=== PATIENT | male | born 1970 | race Caucasian/White ===

== ENCOUNTER → 2025-02-23 12:07 | Outpatient (BNVA) | payer OTHER, SELFPAY | PROVIDERS: Visit Provider Physician Assistant | DX: S46.811A Strain of other muscles, fascia and tendons at shoulder and upper arm level, right arm, initial encounter (principal); W00.2XXA Other fall from one level to another due to ice and snow, initial encounter | CPT/HCPCS: 99203 ==

== ENCOUNTER → 2025-02-28 11:18 | Outpatient (BNVA) | payer OTHER, SELFPAY | PROVIDERS: Visit Provider Physician Assistant Medical | DX: S46.811A Strain of other muscles, fascia and tendons at shoulder and upper arm level, right arm, initial encounter (principal); W00.2XXA Other fall from one level to another due to ice and snow, initial encounter | CPT/HCPCS: 99213 ==

== ENCOUNTER → 2025-03-21 12:38 | Outpatient (BNVA) | payer OTHER, SELFPAY | PROVIDERS: Visit Provider Physician Assistant Medical | DX: S20.229D Contusion of unspecified back wall of thorax, subsequent encounter (principal); S46.811D Strain of other muscles, fascia and tendons at shoulder and upper arm level, right arm, subsequent encounter; W00.2XXD Other fall from one level to another due to ice and snow, subsequent encounter; M24.811 Other specific joint derangements of right shoulder, not elsewhere classified; M50.13 Cervical disc disorder with radiculopathy, cervicothoracic region | CPT/HCPCS: 72040; 72070; 73030; 99214 ==

== ENCOUNTER → 2025-04-04 09:33 | Outpatient (BNVA) | payer OTHER, SELFPAY | PROVIDERS: Visit Provider Physician Assistant Medical | DX: S20.229D Contusion of unspecified back wall of thorax, subsequent encounter (principal); S46.811D Strain of other muscles, fascia and tendons at shoulder and upper arm level, right arm, subsequent encounter; M24.811 Other specific joint derangements of right shoulder, not elsewhere classified; W00.2XXD Other fall from one level to another due to ice and snow, subsequent encounter; M50.13 Cervical disc disorder with radiculopathy, cervicothoracic region | CPT/HCPCS: 99213 ==

== ENCOUNTER 2025-04-14 10:00 | Outpatient (RCR) | payer OTHER, SELFPAY ==
--- NOTE | 2025-03-17 14:13 | MHC.PT.EP ---
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 His current condition is resulting in decreased tolerance for dressing pullovers, lifting objects of weight, placing objects on a high shelf, and laying on his R side secondary to traumatic fall, decreased R shoulder ROM and strength with mild complication d/t previous shoulder surgery, moderate decreased scapular posture, increased tissue tension R cervical accessory muscles, TTP of his R posterior neck and superior posterior R shoulder, and pain. Pt is deemed an appropriate candidate to receive skilled PT services to address their physical impairments in order to improve their functional ability. Frequency and Duration: The patient will be seen 2 x/ wk x 5 wks. Short Term Goals: Initiate home program. Pt will improve baseline pain to at most< 2-5/10; initial 4-7/10. Senior Living Goals: I with home program. Pt will be able to wash and comb his hair with managed Sx; initial: 6/10 difficulty/ pain. Pt will improve R shoulder IR strength by at least 1/2 MMT grade: initial: 4/5 and painful. Pt will report able to dress pullovers with managed Sx; initial: 5/10. Note: He is currently on light duty. Internet search reveals Applicants are required to be able to lift and carry 50#. Treatment Plan: Modalities to reduce pain, spasms and effusion. Manual therapy to restore motion and function. Therapeutic exercise to improve strength and flexibility. Neuromuscular re-education for posture and balance. Therapeutic activities to return to functional activities of daily living. Electronically signed by: Hernandez Cross, PT. Please sign and return to therapist. Thank you for your referral.
--- NOTE | 2025-04-14 14:23 | MHC.PT.DC ---
[facility] [place] [facility] [place] [facility] [place] Office [address] Cher Worthy [address] [phone] F: [phone] F: [phone] F: [phone] F: [phone] Physical Therapy Discharge Report Diagnosis: R trapezius injury Date of Surgery: Date of Evaluation: 03/15/25 Date of Discharge: 04/14/25 Treatments to Date: 10 Cancellations to Date: No Shows to Date: Discharge Status: Improved Function Independent with HEP Patient Elected to Stop Recommend MD Follow-up Discharge Summary: Francisco has been an active participant in his therapy in the clinic with inconsistent home program compliance who has improved his condition though persists with R shoulder pain and R sided cervical pain. SPADI outcome measure improved by 16 points. He is I with a manageable home program and he is motivated for imaging. Pt reports Cervical TxN has been helping his cervical pain so this was continued today. Electronically signed by: Hernandez Boyer PT. Please sign and return to therapist. Thank you for your referral.
== END 2025-04-14 14:25 | disposition home or self-care (01) ==
LOC: HO.PT 10:00
PROVIDERS: Visit Provider Physician Assistant Medical
DX: S46.811D Strain of other muscles, fascia and tendons at shoulder and upper arm level, right arm, subsequent encounter (principal)
CPT/HCPCS: 97012; 97014; 97110; 97112; 97140; 97161; 97530

== ENCOUNTER 2025-04-25 09:51 | Outpatient (REF) | payer OTHER, SELFPAY ==
--- OUTSIDE RECORDS SUMMARY | 2019-12-20 11:16 | XMS_ITS | Continuity of Care Document ---
Author Organization [facility] Address [address] [place] [address] Phone Care Team Providers Care Medical Genetics Director Name Role Phone Unavailable Unavailable Unavailable Allergies, Adverse Reactions, Alerts Substance Reaction Status Criticality No Known Allergies Active No Inform ation Medications Medication Instructions Dosage Effective Dates (start - stop) Status Comments Medrol (Twin) 4 mg tablets in a dose pack take 1 Pack by Oral route 1 Pack - Active per Dr. Platt- [facility] Naprosyn 500 mg tablet take 1 tablet by oral route 2 times every day with food 500 MG - Active FILL Procedures Procedure Date OFFICE/OUTPATIENT VISIT, [facility] OFFICE/OUTPATIENT VISIT, [facility] Shoulder, complete, 2 views Elbow, complete, 3 views Advance Directives Directive Yes / No Effective Date File Name No Information Encounters Encounter Description Practice Location Reason(s) For Visit Diagnoses Date Provider Providers Copied on Encounter [facility], [address], [place], [place], [facility], tel:[phone] [facility] No Information 0 No Information OFFICE/OUTPAT IENT VISIT, [facility], [address], [place], [place], [facility], tel:[phone] [facility] chronic right shoulder pain (chief complaint) Chronic right shoulder pain 201 8 Pattern Data Operator. [facility] [place] [address] [place] [address], [facility], [place]. tel:[phone] Referring Provider: Specialist Volunteer, [address], [place], [address]. [phone] OFFICE/OUTPAT IENT VISIT, [facility], [address], [place], [address], [place] tel:[phone] [facility] pain in R arm and elbow (chief complaint) Chronic right shoulder painOther chronic painElbow pain, right Fe-201 8 Jaquelin Carneson. [address], [place], [place], [id number], [place]. tel:[phone] Referring Provider: Karlee GREEN, [address], [place], [address]. tel:[phone] Family History Family Member Type Diagnosis Age At Onset No Information Payers Payer name Insurance type Covered alliance party ID Authoriza tion(s) No Information Social History Type Description Quantity Date Captured Comments Sex Male Smoking Status No Information Chief Complaint And Reason For Visit No Information Reason For Referral Reason For Referral No Information Plan Of Treatment Date Type Action Status Goal Assess for High Risk CAD (Lipid Panel). Due on due Goal Influenza vaccine. Due on due Goal HIV screen. Due on 18 due Goal TDAP VACCINE Older Than 7. D ue on due Goal Hep C Ab. Due on due Goal Assess for DM if BMI>25 (A1C ). Due on due Goal Assess for High Risk CAD (Lipid Panel). Due on due Goal Influenza vaccine. Due on due Goal Hep C Ab. Due on due Goal Assess for DM if BMI>25 (A1C ). Due on due Goal HIV screen. Due on 18 due Feb-23-2018 Goal TDAP VACCINE Older Than 7. D ue on due Referral Ordered: Shoulder, complete, 2 views ordered Referral Ordered: Elbow, complete, 3 views ordered Referral Ordered: Referrals: [facility] Orthopaedic. 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 Complains of new onset pain to the right shoulder and right elbow. Hx superior labrum anterior & posterior (SLAP) procedure in 2013. 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 Recently noticed pain with grasping heavy objects, describes a burning shooting pain from forearm to elbow. Other medical hx and allergies (none) reviewed w/pt. Functional Status Date Functional Assessmen t No Information Instructions Date Instruction Additional Infor mation Wear compression sle diogenes just at elbow for support Related to Elbow pain, right Will refer you to se moya the technical sales support specialist at [facility], It may take a few weeks for an appt. If you would like physical therapy, a referral can be ordered Related to Chronic right shoulder pain Assessments Type Assessment Date No Information Patient Care Teams Name Effective Dates (start - stop) Status Members No Information
--- NOTE | ~2025-04-25 | MR_ITS ---
EXAM: TECHNIQUE: Multiplanar multisequence imaging of the thoracic spine was performed from the C7-L1 without contrast. INDICATION: Thoracic spine pain PRIOR: X-ray on March 21, 2025 FINDINGS: Marrow and end-plates: There is a lesion in the lower T9 vertebral body 14mm in diameter that demonstrates increased signal on T1 and T2 sequences with coarse trabeculation consistent with a benign vertebral hemangioma. There is similar smaller lesion in T6. There are anterior osteophytes are largest in the mid to lower thoracic spine. Alignment: Vertebral body height and alignment is preserved. Soft tissues: There is a right adrenal gland nodule measuring 14 x 23 mm. It demonstrates intermediate low signal on fluid sensitive sequences. Cord: There is no abnormal cord signal. There is no hydrosyringomyelia. The termination of conus medullaris is within normal limits at the level of L1-2. There is no disc bulge, herniation, spinal stenosis, or foraminal narrowing. MR/MR thoracic spine wo con IMPRESSION: Unremarkable thoracic spine. Indeterminate 14 x 23 mm right adrenal gland nodule. Recommend consideration of laboratory evaluation for possible pheochromocytoma and then subsequent evaluation with Adrenal Protocol CT. Electronically signed by: Shashank Bartlett MD 04/25/2025 11:03 AM EDT
--- OUTSIDE RECORDS SUMMARY | 2025-04-25 12:16 | XMS_ITS | Clinical Summary ---
Author Organization [facility] Address [address] [place] [address] Phone Care Team Providers Care Show Operations Supervisor Name Role Phone Lj, First Name Unknown [facility] Primary Care Provider Social History Tobacco Use Types Packs/Day Years Used Date Smoking Tobacco: Never Assessed Education Answer Date Recorded Are you interested in more education? Not on milana e 04/14/2025 Are you concerned about learning? Not on file 04/14/2025 No 04/14/2025 No 04/14/2025 Digital Access Answer Date Recorded No 04/14/2025 No 04/14/2025 Reliable internet access at home? Not on file 04/14/2025 Device with a working camera? Not on file Sex and Gender Information Value Date Recorded Sex Assigned at Not on file Legal Sex Male 2:50 PM EDT Gender Identity Not on file Sexual Orientation Not on file Plan of Treatment Upcoming Encounters Date Type Department Care Team (Late st Contact Info) Description 04/29/2025 10:45 AM EDT Office Visit Orthopedics [address] [address] Ferdinand Wing MD [address] [address] 04/29/2025 11:30 AM EDT Office Visit Orthopedics [address] [address] Ruddy Rodriges MD [address] [place] [address] Health Maintenance Due Date Last Done Comments Adult Td,Tdap Booster 1972 LIPID PANEL 1972 DEPRESSION SCREENING 1984 SMOKING Hx and SMOKELESS TOB ACCO SCREENING 1985 HEPATITIS C SCREENING 1990 HIV ONE-TIME SCREENING (18-6 5 YEARS) 1990 COLOGUARD 2017 COLONOSCOPY 2017 COLORECTAL CANCER SCREENING 2017 FIT TEST 2017 FOBT 2017 SIGMOIDOSCOPY 2017 VIRTUAL COLONOSCOPY 2017 PNEUMOCOCCAL VACCINES (50+ y ears) (1 of 1 - PCV) 2022 ZOSTER VACCINES (1 of 2) 2022 INFLUENZA VACCINE (#1) 2025 COVID-19 VACCINE (2023-2 5 season) 2025 HEPATITIS A VACCINES Aged Out No long er eligible based on patient's age to complete this topic HIB VACCINES Aged Out No longer eligi ble based on patient's age to complete this topic MENINGOCOCCAL VACCINES (ACWY) Aged Out No longer eligible based on patient's age to complete this topic MENINGOCOCCAL VACCINES (B) Aged Out N o longer eligible based on patient's age to complete this topic Medical Devices Not [place] [address] Care Teams Show Operations Supervisor Relationship Specialty Start Date End Date Lj, First Name Unknown, MBBS [address] [place] [address] [email or web address] PCP - General Diagnostic Radiology 04/14/25 Additional Source Comments The information contained in this document represents components of the legal health record. It is not the complete legal health record.[facility]
--- OUTSIDE RECORDS SUMMARY | 2025-04-25 12:16 | XMS_ITS | Clinical Summary ---
Author Organization [facility] Address [address] [place] [address] Phone Care Team Providers Care [employer]crete Products Installer Name Role Phone Physician, No Pcp Primary Care Provider Unavaila ble Allergies No known active allergies Medications aspirin 81 mg EC tablet Take 1 tablet (81 mg total) by mouth 1 (one) time each day. 30 each 11 5 08/26/19 26 Active nicotine (NICODERM CQ) 21 mg/[address] 1 patch on the skin 1 (one) time each day. 30 each 5 Active albuterol HFA (Proventil HFA) 90 mcg/actuation inhaler Inhale 2 puffs by mouth every 4 (four) hours if needed for wheezing or shortness of breath. 6.7 g 5 08/26/19 26 Active Active Problems Problem Noted Date Diagnosed Date Chest pain 08/25/2024 Surgical History Surgery Date Site/Laterality Comments SHOULDER SURGERY Right x2 Medical History Medical History Date Comments Nicotine dependence Family History Medical History Relation Name Comments Diabetes Father Hypertension Father Coronary artery disease Maternal Grandfather Cancer Maternal Grandmother Cancer Mother Relation Name Status Comments Father Maternal Grandfather Maternal Grandmother Mother Social History Tobacco Use Types Packs/Day Years Used Date Smoking Tobacco: Every Day Cigarettes 1 35.7 Started: 1989 Smokeless Tobacco: Current Alcohol Use Standard Drinks/Week Comments Yes 0 (1 standard drink = 0.6 oz pur e alcohol) rare alchol consumption Sex and Gender Information Value Date Recorded Sex Assigned at Male 08/25/2024 9:09 AM EST Legal Sex Male 7:31 AM EST Gender Identity Male 08/25/2024 9:09 AM EST Sexual Orientation Choose not to disclose 2024 9:09 AM EST Obstetrics History Last Filed Vital Signs Vital Sign Reading Time Taken Comments Blood Pressure 115/77 08/26/2024 7:29 AM EST Pulse 84 08/26/2024 7:39 AM EST Temperature 36.3 C (97.4 F) 08/26/2024 7:29 AM EST Respiratory Rate 16 08/26/2024 7:39 AM EST Oxygen Saturation 97% 08/26/2024 7:39 AM EST Inhaled Oxygen Concentration - - Weight 109 kg (240 lb) 08/25/2024 7:39 AM EST Height 165.1 cm (5' 5 ) 08/25/2024 7:39 AM EST Body Mass Index 39.94 08/25/2024 7:39 AM EST Plan of Treatment Upcoming Encounters Date Type Department Care Team (Late st Contact Info) Description 04/25/2025 6:00 PM EDT Appointment [facility] [address] [place] [address] Health Maintenance Due Date Last Done Comments DTaP,Tdap,and Td Vaccines (1 - Tdap) 1991 Hepatitis B Vaccines (1 of 3 - 19+ 3-dose series) 1991 Pneumococcal Vaccine: 50+ Ye ars (1 of 2 - PCV) 1991 Zoster Vaccines (1 of 2) 2022 Depression Screening 08/11/2024 Colorectal Cancer Screening: Colonoscopy 08/25/2024 HIV Screening 08/25/2024 Hepatitis C Screening 08/25/2024 Lung Cancer Screening (Low D ose CT) 08/25/2024 Social Influencers of Health Screening 08/25/2024 COVID-19 Vaccine (1 - 2023-2 5 season) 2025 Influenza Vaccine (#1) 2025 Cholesterol Screening (Lipid Panel) 08/26/2029 08/26/2024 HIB Vaccines Aged Out No longer eligi ble based on patient's age to complete this topic HPV Vaccines Aged Out No longer eligi ble based on patient's age to complete this topic Hepatitis A Vaccines Aged Out No long er eligible based on patient's age to complete this topic IPV Vaccines Aged Out No longer eligi ble based on patient's age to complete this topic MMR Vaccines Aged Out No longer eligi ble based on patient's age to complete this topic Meningococcal ACWY Vaccine Aged Out N o longer eligible based on patient's age to complete this topic Meningococcal B Vaccine Aged Out No l onger eligible based on patient's age to complete this topic RSV Immunization Patients Un ezio 20 months Aged Out No longer eligible b ased on patient's age to complete this topic Varicella Vaccines Aged Out No longer eligible based on patient's age to complete this topic Procedures Procedure Name Priority Date/Time Associated Diagnosis Comments LIPID PANEL WITH REFLEX TO DIRECT LDL Routine 08/26/2024 5:56 AM EST from Last 3 Months or Most Recently Relevant to Health Maintenance Results * (ABNORMAL) Lipid panel with reflex to direct LDL (08/26/2024 5:56 AM EST) Cholesterol 248(H) 0 - 200 mg/dL LAB CHEMISTRY METHOD 08/26/2024 7:27 AM [facility] Triglycerides 303(H) 0 - 150 mg/dL LAB CHEMISTRY METHOD 08/26/2024 7:27 AM [facility] HDL 36(L) >=40 mg/dL LAB CHEMISTRY METHOD 08/26/2024 7:27 AM [facility] LDL Calculated 151(H) 0 - 100 mg/dL LAB CHEMISTRY METHOD 08/26/2024 7:27 AM [facility] VLDL Cholesterol [place] 60.6 mg/dL LAB CHEMISTRY METHOD 08/26/2024 7:27 AM [facility] Non HDL Chol. (LDL+VLDL) 212(H) <145 mg/dL LAB CHEMISTRY METHOD 08/26/2024 7:27 AM [facility] Chol/HDL Ratio 6.9(H) 0.0 - 4.4 LAB CHEMISTRY METHOD 08/26/2024 7:27 AM [facility] Blood Venous blood specimen / Unknown Venipuncture / Unknown 08/26/2024 5:56 AM EST 08/26/2024 6:33 AM EST us Nayely [facility] LAB BLOOD ORDERABLES Final Resu lt [facility] [address] [place] [address], [place] [phone] from Last 3 Months or Most Recently Relevant to Health Maintenance Insurance [employer] [place] [address] Advance Directives * Full Code - Default (Latest Code Status on File) Date Activated Date Inactivated Comments 08/25/2024 4:10 PM 08/26/2024 1:15 PM This is orde r is used when code status has not been discussed with the patient, or code status is otherwise unknown/unconfirmed To update the patient's code status, place a code status order. Do not modify or discontinue any currently active code status orders. Care Teams [employer] Installer Relationship Specialty Start Date End Date Physician, No Pcp PCP - General 08/25/24
== END 2025-04-25 09:52 | disposition home or self-care (01) ==
LOC: HO.MRI 09:51
PROVIDERS: Visit Provider Internal Medicine
DX: M54.6 Pain in thoracic spine (principal)
CPT/HCPCS: 72146

== ENCOUNTER → 2025-04-25 10:05 | Outpatient (BNV) | payer OTHER, SELFPAY | PROVIDERS: Visit Provider Radiology Diagnostic Radiology | DX: M54.6 Pain in thoracic spine (principal); E27.9 Disorder of adrenal gland, unspecified | CPT/HCPCS: 72146 ==